=== PATIENT | male | born 1935 | race Caucasian/White ===

== ENCOUNTER 2023-12-08 07:43 | Observation (INO) ==
[~2023-12-08 07:43] MED LIST: Levalbuterol 0.63MG/3ML NEB UNIT OF USE INH PRN; Naloxone 0.4 mg VIAL 0.4 mg/ml 1 ml VIAL IV PRN; Ondansetron 4 mg VIAL 2 MG/ML 2 ml VIAL IV PRN; PHENYLEPHRINE DRIP IVPREMIX 50 MG/250 ML BAG IV SCH; fentaNYL 100 mcg/2 ml 50 MCG/ML VIAL IV PRN
[2023-12-08] MEDS ORDERED: cefTRIAXone 1 gm/50 mL D5W 1 GM/50 ML BAG IV ONE (08:02)
[2023-12-08] MEDS ORDERED: Ondansetron 4 mg VIAL 2 MG/ML 2 ml VIAL IV PRN ×3 (08:23→12:12)
[2023-12-08 08:24] LABS: Rapid COVID-19 Molecular Undetected (Undetected)
[2023-12-08] MEDS ORDERED: Propofol 10 MG/ML 20 ML BTL ONE (10:13)
[2023-12-08] MEDS ORDERED: Dexamethasone IV 4 MG/ML VIAL 1 ml VIAL ONE (10:13)
[2023-12-08] MEDS ORDERED: fentaNYL 100 mcg/2 ml 50 MCG/ML VIAL ONE (10:13)
[2023-12-08] MEDS ORDERED: Ondansetron 4 mg VIAL 2 MG/ML 2 ml VIAL ONE (10:13)
[2023-12-08] MEDS ORDERED: PHENYLEPHRINE DRIP IVPREMIX 50 MG/250 ML BAG IV SCH (12:10)
[2023-12-08] MEDS ORDERED: Levalbuterol 0.63MG/3ML NEB UNIT OF USE INH PRN (12:12)
[2023-12-08] MEDS ORDERED: Naloxone 0.4 mg VIAL 0.4 mg/ml 1 ml VIAL IV PRN (12:14)
[2023-12-08] MEDS ORDERED: fentaNYL 100 mcg/2 ml 50 MCG/ML VIAL IV PRN (12:14)
[2023-12-08] MEDS: NS 0.9% 1000 ml BAG 1,000 ML IV SCH ×2 (13:32→14:04)
[2023-12-08] MEDS: Acetaminophen IV 1 GM/100ML 1,000 MG/100 ML BAG IV ONE ×2 (13:32)
[2023-12-08] MEDS: Neomycin/Polym/Bacit TOP OINT 15 GM TOPICAL SCH ×2 (13:33→14:04)
[2023-12-08] MEDS: Magnesium Hydroxide LIQ 30 ML UDC PO SCH ×2 (13:33→20:57)
[2023-12-09 06:57] LABS: ABS Lymphocytes 0.6 10^3/uL (1.0-4.8); ABS Monocytes 0.9 10^3/uL (0.0-1.1); ABS Neutrophils 6.5 10^3/uL (1.5-7.6); ABS Nucleated RBC 0.01 10^3/ul; Hematocrit 34.8 % (38-53); Hemoglobin 11.9 g/dL (13.2-16.3); Lymphocyte % 7.3 %; Mean Corpuscular Hemoglobin 35.6 pg (27-33); Mean Corpuscular Hgb Conc 34.3 g/dL (31-36); Mean Corpuscular Volume 103.9 fL (80-97); Mean Platelet Volume 8.7 fL (7.5-11.2); Nucleated Red Blood Cells % 0.1 %/100WBC (0.0-0.8); Platelet Count 144 10^3/uL (150-450); Red Blood Count 3.35 10^6/uL (4.06-5.63); Red Cell Distribution Width 13.9 % (12-17)
[2023-12-09 07:14] LABS: Calcium 8.9 mg/dL (8.6-10.3); Creatinine, Serum 1.16 mg/dL (0.67-1.17); Potassium 4.7 mmol/L (3.5-5.0); eGFR CKD-EPI 60.2 (>60)
[2023-12-09 10:41] VITALS: BP 145/66
[2023-12-19 11:36] LABS: FURO Result Summary Negative; FURO Source bladder wash; FURO Specimen Varies
== END 2023-12-09 12:23 | disposition home or self-care (01) ==
LOC: INTOOBSV 07:43 → AA 07:43 → INTOOBSV 07:50 → AA 07:50 → SSU 08:23 → EDSTATUS 10:00 → PREOBSVTOIN 12:08
PROVIDERS: ADMIT Urology; ATTEND Urology